=== PATIENT | male | born 2000 | race Caucasian/White ===

== ENCOUNTER 2019-01-22 15:33 | Emergency (ER) | payer SELFPAY ==
[2019-01-22 15:43] VITALS: BP 156/82; PULSE 94; RESP 18; TEMP 36.3; O2SAT 97
--- NOTE | 2019-01-22 15:48 | DI.RAD.S_ITS ---
PROCEDURE: XR FOREARM RT 2V INDICATIONS: Pain, swelling in proximal forearm impact w/crawbar TECHNIQUE: 2 views of the forearm were acquired. COMPARISON: None. FINDINGS: Bones: No fractures or dislocations. No suspicious bony lesions. Soft tissues: No suspicious soft tissue calcifications or masses. IMPRESSION: Left forearm without acute osseous abnormalities. Of note, this study was ordered for the right forearm, but images are labeled 'left'. Please confirm side of patient's symptoms and the side that was imaged to verify concordance. Dictated by: Jonathan Velasquez M.D. on 01/22/2019 at 16:00 Approved by: Jonathan Velasquez M.D. on 01/22/2019 at 16:03
--- NOTE | 2019-01-22 17:53 | ED.UPPEXIN ---
HPI - Extremity Injury (Upper) General Chief Complaint: Extremity Injury, Upper Stated Complaint: LEFT WRIST INJURY Time Seen by Provider: 01/22/19 17:53 Related Data Allergies Allergy/AdvReac Type Severity Reaction Status Date / Time No Known Drug Allergies Allergy Verified 01/22/19 15:47 PFSH Social History Smoking Status: Current every day smoker Social History Smoking Status: Current every day smoker Exam Initial Vital Signs Initial Vital Signs: Vital Signs Temperature 97.4 F L 01/22/19 15:43 Pulse Rate 94 H 01/22/19 15:43 Respiratory Rate 18 01/22/19 15:43 Blood Pressure 156/82 H 01/22/19 15:43 Pulse Oximetry 97 01/22/19 15:43 Course Orders Ordered: ED Orders 01/22/19 15:48 XR forearm LT 2V Stat Vital Signs - 8 hr 01/22/19 15:43 Temperature 97.4 F L Pulse Rate 94 H Respiratory Rate 18 Blood Pressure 156/82 H Pulse Oximetry 97
== END 2019-01-22 19:22 | disposition left against medical advice (07) ==
PROVIDERS: Emergency Provider Emergency Medicine
DX: S69.92XA Unspecified injury of left wrist, hand and finger(s), initial encounter (principal)
CPT/HCPCS: 73090; 99282

== ENCOUNTER 2019-06-19 18:22 | Emergency (ER) | payer SELFPAY ==
[2019-06-19 18:25] VITALS: BP 135/80; PULSE 72; RESP 20; TEMP 36.7; O2SAT 100; BMI 20.9
[2019-06-19] MEDS: PROPARACAINE 0.5% OPHTH SOL 1 DROPS EYE-LEFT (19:37)
--- NOTE | 2019-06-19 20:02 | ED_ITS ---
HPI - Eye Problem General Chief complaint: Eye Problems Stated complaint: grinding metal at home, chunk stuck in left eye Time Seen by Provider: 06/19/19 19:43 Source: patient Mode of arrival: ambulatory Limitations: no limitations History of Present Illness HPI Narrative: Otherwise healthy 19-year-old male here for evaluation of a foreign body in his left eye. Patient states he was grinding metal at home and he was wearing safety glasses however piece of metal came up and bounced off the inside portion of his nose and went into his left eye. He does not were contacts. He states he does have a prescription for glasses but rarely wears them. Has never had prior eye surgeries in the past. Has not tried anything for symptoms prior to arrival. Related Data Previous Rx's Medication Instructions Recorded acetaminophen-codeine 1 tab PO Q4-6H PRN #7 tab 06/19/19 [Tylenol-Codeine #3] erythromycin 0.5 inch EYE-LEFT TID 2 Days #1 06/19/19 gram Allergies Allergy/AdvReac Type Severity Reaction Status Date / Time No Known Drug Allergies Allergy Verified 01/22/19 15:47 Review of Systems Constitutional Denies fever(s) and Denies headache(s) Eyes Denies diplopia Comments: Foreign body sensation left eye with your taken left eye. ENT Ears, Nose, Mouth, and Throat: Denies headache(s) Integumentary/Breasts Denies new lesions and Denies rash Neurologic Denies headache(s) Hematologic/Lymphatic Denies easy bleeding and Denies easy bruising FOR[facility]LY [facility], [facility] Medical History Patient denies medical problems (Acute) Social History Smoking Status: Current every day smoker Social History Smoking Status: Current every day smoker Exam Initial Vital Signs Initial Vital Signs: Vital Signs Temperature 98.0 F 06/19/19 18:25 Pulse Rate 72 06/19/19 18:25 Respiratory Rate 20 06/19/19 18:25 Blood Pressure 135/80 06/19/19 18:25 Pulse Oximetry 100 06/19/19 18:25 Const General: cooperative, comfortable, well developed and well groomed Orientation: alert, awake and oriented x3 HENMT Head: normal to inspection and normocephalic Eyes Periorbital: periorbital findings normal Eyelids: eyelids normal Conjunctivae: conjunctivae normal Cornea: corneas abnormal on the left foreign body metallic Pupils: PERRL EOM: EOM intact bilaterally Resp Effort & Inspection: normal respiratory effort Auscultation: clear to auscultation bilaterally Cardio Rate: regular rate Rhythm: regular rhythm Skin Lesions: no lesions Rashes: no rashes Neuro General: alert and awake Cognition: normal cognition Speech: speech normal Extrem General: normal to inspection and capillary refill normal Psych Appearance: grossly normal and well kempt Procedures Foreign Body EYE Time Out performed: Yes Location: eye (L) Topical anesthetic used: proparacaine Foreign body: metal Evidence of corneal penetration: No Technique: cotton tip swab, needle and electric nicole Procedure performed under: slit-lamp Post-procedure medication: ophthalmic antibiotic Patient tolerated procedure: well and no complications Course Orders Ordered: Discontinued Medications Erythromycin (Erythromycin Ophth Oint) 1 applic EYE-LEFT NOW ONE Stop: 06/19/19 20:03 Last Admin: 06/19/19 20:07 Dose: 1 applic Proparacaine HCl (Parcaine 0.5% Ophth [place]) 1 drops EYE-LEFT PRN PRN PRN Reason: Pain, Mild (1-3) Last Admin: 06/19/19 19:37 Dose: 1 drop Vital Signs - 8 hr 06/19/19 18:25 Temperature 98.0 F Pulse Rate 72 Respiratory Rate 20 Blood Pressure 135/80 Pulse Oximetry 100 MDM - Eye Problem MDM Narrative Medical decision making narrative: Patient with a obvious foreign body to the nasal aspect of the left cornea. Unable to remove this with a Q-tip. Under the slit lamp we were able to remove it with a needle. There was a residual rust ring which had to be removed with a bur. This was completely removed. Patient was given erythromycin ointment here in the ER. Was sent home with a prescription for this. There is no other foreign body seen with eversion of the upper and lower eyelid. No signs of perforation. Patient was given return precautions and follow-up instructions. He expressed understanding and agreement with plan. Discharge Plan Departure Patient Disposition: Home Clinical Impression: Foreign body, eye Qualifiers: Encounter type: initial encounter Laterality: left Qualified Code(s): T15.92XA - Foreign body on external eye, part unspecified, left eye, initial encounter Discharge Date/Time: 06/19/19 20:11 Interventions: ED Discharge Assessment Last Done: 06/19/19 20:11 Instructions: DI for Foreign Body in the Eye Activity Restrictions/Additional Instructions: Your medications were sent to the [facility] here in [place]. If you need help with finding a primary care provider you can call [phone]. Use the antibiotic ointment as directed. Return to the ER for any new or worsening symptoms. Prescriptions: New acetaminophen-codeine [Tylenol-Codeine #3] 300-30 mg tablet 1 tab PO Q4-6H PRN (Reason: pain) Qty: 7 RF: 0 erythromycin 5 mg/gram (0.5 %) ointment 0.5 inch EYE-LEFT TID 2 Days Qty: 1 RF: 0
[2019-06-19] MEDS: ERYTHROMYCIN OPHTH 1 GM OINT 1 APPLIC EYE-LEFT (20:07)
== END 2019-06-19 20:11 | disposition home or self-care (01) ==
PROVIDERS: Emergency Provider Emergency Medicine
DX: T15.92XA Foreign body on external eye, part unspecified, left eye, initial encounter (principal); W31.1XXA Contact with metalworking machines, initial encounter
CPT/HCPCS: 65222; 99283